=== PATIENT | male | born 2005 | race Caucasian/White ===

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

== ENCOUNTER 2024-04-17 02:07 | Outpatient (CLI) | payer MEDICAID, SELFPAY ==
--- NOTE | 2024-04-17 | DI.US_ITS ---
Exam(s) US SCROTUM EXAM: US SCROTUM CLINICAL HISTORY: TESTICULAR MASS, N50.89. TECHNIQUE: Scrotal ultrasound performed using grayscale, color-flow and spectral Doppler analysis. COMPARISON: No exams were available for comparison FINDINGS: Right testicle: 3.6 x 2.2 x 3.8 cm Echogenicity: Normal. Contour: Smooth. Mass: None seen. Microlithiasis: None. Hydrocele: None. Variocele: None. Hernia: No peristalsing bowel loop identified. Epididymis: Normal. Left testicle: 4.5 x 3 x 1.7 cm Echogenicity: Normal. Contour: Smooth. Mass: None seen. Microlithiasis: None. Incidental note is made of a scrotal alireza which is mobile and measures 0.4 x 0 .2 x 0.3 cm. Hydrocele: There is a small left hydrocele measuring 3 x 0.9 x 1.7 cm. Variocele: There is a small left varicocele. Hernia: No peristalsing bowel loop identified. Epididymis: Normal. DOPPLER: Color: Symmetric and uniform, no hyperemia. IMPRESSION: 1. Normal appearing bilateral testicles. No evidence of a testicular mass. 2. Small left hydrocele. 3. Left-sided mobile scrotal alireza. DATA REPOSITORY:
== END 2024-04-17 02:27 ==
LOC: DI 02:07
PROVIDERS: Visit Provider Student in an Organized Health Care Education/Training Program
DX: N50.89 Other specified disorders of the male genital organs (principal); N43.3 Hydrocele, unspecified
CPT/HCPCS: 76870

== ENCOUNTER 2025-07-04 20:52 | Outpatient (REF) | payer MEDICAID, SELFPAY | END 2025-07-04 20:53 | disposition home or self-care (01) | LOC: LBN 20:52 | PROVIDERS: PCP Student in an Organized Health Care Education/Training Program; Visit Provider Physician Assistant Medical | DX: J02.9 Acute pharyngitis, unspecified (principal) | CPT/HCPCS: 87070 ==